=== PATIENT | female | born 1985 | race Two or more races ===

== ENCOUNTER 2024-12-19 17:32 | Emergency (ER) | payer OTHER ==
[~2024-12-19] VITALS: Ht 170.2 cm; Wt 70.5 kg
[2024-12-19 17:43] VITALS: BP 111/64; PULSE 78; RESP 18; TEMP 98.1; O2SAT 98
[2024-12-19 18:02] LABS: COVID AG,FIA SOURCE NASAL SWAB
[2024-12-19 18:21] LABS: BASOPHILS % (AUTO) 0.4 % (0.0-2.0); EOSINOPHILS % (AUTO) 0.9 % (1.0-6.0); HEMATOCRIT 45.1 % (36-46); HEMOGLOBIN 14.8 g/dL (12.0-16.0); LYMPHOCYTES # (AUTO) 0.8 K/uL (1.0-4.8); LYMPHOCYTES % (AUTO) 12.7 % (22.0-44.0); MEAN CORPUSCULAR VOLUME 94 fL (80-100); MONOCYTES # (AUTO) 0.3 K/uL (0.1-1.0); MONOCYTES % (AUTO) 4.9 % (2.0-9.0); NEUTROPHILS # (AUTO) 5.3 K/uL (1.8-7.7); NEUTROPHILS % (AUTO) 81.1 % (40.0-70.0); PLATELET COUNT (AUTO) 245 K/uL (150-450); RED BLOOD CELL COUNT(AUTO) 4.79 MIL/uL (4.00-5.20); RED CELL DISTRIBUTION WIDTH 13.8 % (11.5-14.5); WHITE BLOOD COUNT (AUTO) 6.5 K/uL (4.5-11.0)
[2024-12-19 18:24] LABS: INFLUENZA TYPE A NEGATIVE FOR TYPE A (NEGATIVE); INFLUENZA TYPE B NEGATIVE FOR TYPE B (NEGATIVE); SARS-COV2 (COVID) ANTIGEN,FIA Negative (Negative)
[2024-12-19 18:29] LABS: ANION GAP 6 mmol/L (8-16); CALCIUM, TOTAL 8.3 mg/dL (8.8-10.5); CARBON DIOXIDE 29 mmol/L (22-29); CHLORIDE 103 mmol/L (98-107); CREATININE 0.73 mg/dL (0.60-1.30); GLOMERULAR FILTR. RATE CALC > 60 mL/min (>60); GLUCOSE,RANDOM 95 mg/dL (70-110); POTASSIUM 3.8 mmol/L (3.5-5.1); SODIUM SERUM 138 mmol/L (136-145); UREA NITROGEN, BLOOD 8 mg/dL (7-18)
[2024-12-19] MEDS: ACETAMINOPHEN 500 MG TABLET PO ONE (21:52)
[2024-12-19] MEDS: KETOROLAC TROMETHAMINE 30 MG/ML VIAL IVP ONE (21:52)
[2024-12-19] MEDS: SODIUM CHLORIDE 0.9% 2,000 ML IV ONE (21:52)
[2024-12-19] MEDS: ONDANSETRON HCL 4 MG/2 ML VIAL IVP ONE (21:52)
[2024-12-19] MEDS: DIPHENOXYLATE/ATROP 2.5-0.025 MG TABLET PO ONE (21:58)
[2024-12-19] MEDS ORDERED: ACET-66 PO (22:40)
[2024-12-19] MEDS ORDERED: DIPH-1130 PO (22:40)
[2024-12-19] MEDS ORDERED: ONDA-104 PO (22:40)
== END 2024-12-19 22:57 | disposition home or self-care (01) ==
LOC: EMS 17:32
DX: K52.9 Noninfective gastroenteritis and colitis, unspecified (principal); R42 Dizziness and giddiness; Z98.84 Bariatric surgery status; Z20.822 Contact with and (suspected) exposure to COVID-19
CPT/HCPCS: 99284; 96374; 96361; 96375; 87426; 80048; 84703; 85025; 87804; 36415; J1885; J2405; J7030

== ENCOUNTER 2025-06-27 21:49 | Emergency (ER) | payer OTHER ==
[~2025-06-27] VITALS: Ht 167.6 cm; Wt 72.7 kg
[~2025-06-27 21:49] MED LIST: ACET-66 PO; DIPH-1130 PO; ONDA-104 PO
[2025-06-27 21:50] VITALS: TEMP 97.3
[2025-06-27 22:12] LABS: PLATELET COUNT (AUTO) 213 K/uL (150-450); RED BLOOD CELL COUNT(AUTO) 4.26 MIL/uL (4.00-5.20); RED CELL DISTRIBUTION WIDTH 14.3 % (11.5-14.5); WHITE BLOOD COUNT (AUTO) 7.8 K/uL (4.5-11.0)
[2025-06-27 22:19] LABS: CALCIUM, TOTAL 8.4 mg/dL (8.8-10.5); CREATININE 0.98 mg/dL (0.60-1.30); GLOMERULAR FILTR. RATE CALC > 60 mL/min (>60); GLUCOSE,RANDOM 100 mg/dL (70-110); SODIUM SERUM 137 mmol/L (136-145); UREA NITROGEN, BLOOD 13 mg/dL (7-18)
[2025-06-27] MEDS: ONDANSETRON HCL 4 MG/2 ML VIAL IVP ONE (22:19)
[2025-06-27] MEDS: KETOROLAC TROMETHAMINE 30 MG/ML VIAL IVP ONE (22:20)
[2025-06-27 22:22] LABS: APPEARANCE,URINE CLEAR (CLEAR); GLUCOSE, URINE (UA) NEGATIVE (NEGATIVE); LEUKOCYTE ESTERASE ,URINE MODERATE (NEGATIVE); NITRATE,URINE NEGATIVE (NEGATIVE); OCCULT BLOOD,URINE NEGATIVE (NEGATIVE); SPECIFIC GRAVITIY, URINE 1.012 (1.003-1.030)
[2025-06-27 22:29] LABS: TROPONIN I-HIGH SENSITIVITY 4 ng/L (<51)
[2025-06-27 22:32] LABS: HCG,QUANTITATIVE < 1 mIU/mL (0-6)
[2025-06-27 22:38] LABS: SQUAMOUS EPITHELIAL CELL,UR Few /LPF (None Seen)
[2025-06-27 23:36] LABS: ASPARTATE AMINOTRANSFERASE 202.0 U/L (15-37); TOTAL PROTEIN, SERUM 6.6 g/dL (6.4-8.2)
[2025-06-28 00:03] VITALS: BP 114/75; PULSE 73; RESP 17; O2SAT 100
[2025-06-28] MEDS ORDERED: ONDA-104 PO (01:13)
== END 2025-06-28 01:11 | disposition home or self-care (01) ==
LOC: EMS 21:49
DX: R10.13 Epigastric pain (principal); R79.89 Other specified abnormal findings of blood chemistry
CPT/HCPCS: 99284; 96374; 96375; 80048; 80076; 81001; 83690; 84484; 84702; 85025; 87086; 36415; 93005; J1885; J2405